=== PATIENT | female | born 1930 | race Caucasian/White ===

== ENCOUNTER 2016-05-31 11:20 | Emergency (ER) | payer OTHER ==
[~2016-05-31] VITALS: Ht 162.6 cm; Wt 82.0 kg
--- NOTE | 2016-05-31 11:29 | ERA ---
ER Documentation Chief Complaint Date/Time DATE: 05/31/16 TIME: 11:28 Chief Complaint Nasal congestion HPI The patient is a 85-year-old female, presenting to the ER because of nasal congestion, intermittent cough for the last 3-4 days, denies fever, chills, neck pain, chest pain, dyspnea, abdominal pain, vomiting, dysuria, diarrhea, skin rash. She does not smoke or drink Past medical history: Diabetes mellitus, hypertension, peripheral neuropathy Past surgical history: Hysterectomy ROS All systems reviewed and are negative except as per history of present illness. Medications Home Meds Active Scripts Dextromethorphan Hb-Promethazine Hcl (Promethazine DM Syrup) 473 Ml Syrup, 10 ML PO Q6H Y for COUGH, #4 OZ Prov:IRMA GUALLPA MD 05/31/16 Azithromycin* (Zithromax*) 250 Mg Tablet, 250 MG PO .ZPACK DIRECTED, #6 TAB TAKE 500 MG (2 TABS) THE FIRST DAY THEN 250 MG (1 TAB) DAYS 2-5 Prov:IRMA GUALLPA MD 05/31/16 Physical Exam Vitals Vital Signs Date Time Temp Pulse Resp B/P Pulse Ox O2 Delivery O2 Flow Rate FiO2 05/31/16 11:47 98.1 71 20 169/79 99 Physical Exam Const: No acute distress. Head: Atraumatic. Eyes: Normal Conjunctiva. ENT: Normal External Ears, Nose and Mouth. Bilateral tympanic membranes and oropharynx are within normal limits Neck: Full range of motion. No meningismus. Resp: Clear to auscultation bilaterally. Cardio: Regular rate and rhythm, no murmurs. Abd: Soft, non distended, normal bowel sounds, non tender. Skin: No petechiae or rashes. Back: No midline or flank tenderness. Ext: No cyanosis, or edema. Neur: Awake and alert. No focal deficit Psych: Normal Mood and Affect. Procedures/[place] [id number] Radiology Main Line: [phone] DIAGNOSTIC IMAGING REPORT Patient: ANDRES JONES : 1930 Age: 85 Sex: F MR #: [id number] DOS: 05/31/16 0000 Ordering MD: IRMA GUALLPA MD Location: E/R Room/Bed: PROCEDURE: XR Chest 1 View. CLINICAL INDICATION: Cough TECHNIQUE: AP view of the chest was obtained. COMPARISON: None. FINDINGS: The heart size is within normal limits. Calcified atherosclerosis is noted in the aorta. Atelectasis versus minimal infiltrates are seen in the right lower lobe. Diffuse mild interstitial prominence is seen in both lungs. No consolidations are identified. No pneumothorax is seen. The osseous structures are osteopenic, but appear grossly intact. IMPRESSION: Calcified atherosclerosis in the aorta. Diffuse mild interstitial prominence in both lungs. Interstitial prominence may be chronic. Atelectasis versus minimal infiltrates in the right lower lobe. RPTAT: AA .Curtis Blanchard MD, Date Time Electronically viewed and signed by .Curtis Blanchard MD, MD on 05/31/2016 12:16 .P/ CC: IRMA GUALLPA MD MEDICAL MAKING DECISION: The patient is a 85-year-old female, presenting with acute URI and acute bronchitis. She remains well in the emergency department. The differential diagnoses considered include but are not limited to influenza, asthma, COPD, pneumonia, pulmonary embolus, pleural effusion, congestive heart failure. Departure Diagnosis: Primary Impression: Bronchitis Additional Impression: Upper respiratory infection Condition: Good Comments She was discharged with azithromycin and Phenergan DM I discussed the findings with the patient. I advised the patient to follow-up with the primary physician in about 1-2 days, sooner if needed and return if any concern. IRMA GUALLPA MD May 31, 2016 11:29
[2016-05-31 11:47] VITALS: Ht 162.6 cm; Wt 82.0 kg
--- NOTE | 2016-05-31 12:16 | RADRPT ---
PROCEDURE: XR Chest 1 View. CLINICAL INDICATION: Cough TECHNIQUE: AP view of the chest was obtained. COMPARISON: None. FINDINGS: The heart size is within normal limits. Calcified atherosclerosis is noted in the aorta. Atelectasi s versus minimal infiltrates are seen in the right lower lobe. Diffuse mild interstitial prominence is seen in both lungs. No consolidations are identified. No pneumothorax is seen. The osseous str uctures are osteopenic, but appear grossly intact. IMPRESSION: Calcified atherosclerosis in the aorta. Diffuse mild interstitial prominence in both lungs. Interstitial prominence may be chronic. Atelectasis versus minimal infiltrates in the right lower lobe. RPTAT: AA .Curtis Blanchard MD, MD Date Time Electronically viewed and signed by .Curtis Blanchard MD, on 05/31/2016 12:16 .P/
[2016-05-31] MEDS ORDERED: D-ME473S18 PO (12:29)
[2016-05-31] MEDS ORDERED: AZIT250T94 PO (12:29)
[2016-05-31 15:38] VITALS: BP 178/88; PULSE 68; RESP 18; TEMP 98
== END 2016-05-31 15:39 | disposition home or self-care (01) ==
LOC: E/R 11:20
DX: J20.9 Acute bronchitis, unspecified (principal); J06.9 Acute upper respiratory infection, unspecified; I10 Essential (primary) hypertension; E11.9 Type 2 diabetes mellitus without complications
CPT/HCPCS: 71010; 82962